=== PATIENT | female | born 1950 | race Caucasian/White ===

== ENCOUNTER 2023-03-04 08:47 | Emergency (ER) | payer BC, MEDICAID ==
[~2023-03-04] VITALS: Ht 152.4 cm; Wt 68.5 kg
[2023-03-04 08:59] VITALS: BP 168/85
--- NOTE | 2023-03-04 09:04 | NUR ---
PT AMBULATED TO ER BED 7
--- NOTE | 2023-03-04 09:35 | NUR ---
Lab at bedside.
--- NOTE | 2023-03-04 09:42 | NUR ---
X-Ray at bedside.
[2023-03-04 09:47] LABS: BASOPHILS % (AUTO) 0.7 % (0.0-2.0); EOSINOPHILS # (AUTO) 0.1 K/uL (0-0.4); EOSINOPHILS % (AUTO) 2.3 % (0.0-4.0); HEMATOCRIT 33.6 % (36-48); HEMOGLOBIN 11.3 g/dL (12.0-16.0); LYMPHOCYTES # (AUTO) 1.3 K/uL (2.5-16.5); LYMPHOCYTES % (AUTO) 22.7 % (20.5-51.1); MEAN CORPUSCULAR HEMOGLOBIN 31 pg (27-31); MEAN CORPUSCULAR HGB CONC 34 g/dL (33-37); MEAN CORPUSCULAR VOLUME 91.3 fL (80-94); MONOCYTES # (AUTO) 0.4 K/uL (0.8-1.0); MONOCYTES % (AUTO) 6.6 % (1.7-9.3); NEUTROPHILS # (AUTO) 3.8 K/uL (1.8-7.7); NEUTROPHILS % (AUTO) 67.7 % (42.2-75.2); PLATELET COUNT (AUTO) 148 K/uL (140-450); RED BLOOD CELL COUNT(AUTO) 3.68 MIL/uL (4.20-5.40); RED CELL DISTRIBUTION WIDTH 14.3 % (11.6-13.7); WHITE BLOOD COUNT (AUTO) 5.7 K/uL (4.8-10.8)
--- NOTE | 2023-03-04 09:52 | NUR ---
Dr. Montgomery evaluating patient at bedside.
[2023-03-04] MEDS ORDERED: ACETAMINOPHEN EXTRA STRENGTH 500 MG TAB PO ONE (09:55)
--- NOTE | 2023-03-04 09:55 | NUR ---
72 y/o female bib self with c/o headache, non-productive cough, sore throat and runny nose x 1 week. Denies taking any medication for symptoms. Patient reports traveling to [place] right before symptoms began. Patient reports family also has similar symptoms. Patient is unsure if she has had a fever. Patient reports headache and back pain. Medical History: HTN, Pre-DM, HLD, Depression NKDA
[2023-03-04 10:11] LABS: ALBUMIN 3.2 g/dL (3.4-5.0); ASPARTATE AMINOTRANSFERASE 25 U/L (15-37); CARBON DIOXIDE 28.6 mmol/L (21-32); CHLORIDE 107 mmol/L (98-107); CREATININE 0.8 mg/dL (0.6-1.3); GLUCOSE 117 mg/dL (74-106); POTASSIUM 3.6 mmol/L (3.5-5.1); SODIUM SERUM 143 mmol/L (136-145); TOTAL BILIRUBIN 0.4 mg/dL (0.0-1.0); UREA NITROGEN, BLOOD 22 mg/dL (7-18)
--- NOTE | 2023-03-04 10:51 | NUR ---
Dr. Montgomery re-evaluating patient at bedside.
[2023-03-04] MEDS ORDERED: ACET-10509 PO (10:53)
[2023-03-04] MEDS ORDERED: BENZ200C4 PO (10:53)
[2023-03-04 11:04] VITALS: BP 153/67
--- NOTE | 2023-03-04 11:04 | NUR ---
Patient discharged with v/s stable. Written and verbal after care instructions given. Patient alert, oriented and verbalized understanding of instructions. Ambulatory with steady gait. All questions addressed prior to discharge. ID band removed. Patient advised to follow up with PMD. Rx of Benzonatate and Tylenol given. Opportunity to ask questions provided and answered.
--- NOTE | 2023-03-04 11:05 | NUR ---
The patient's care was reviewed and supervised by Tami Espinoza RN.
== END 2023-03-04 11:04 | disposition home or self-care (01) ==
LOC: MED 08:47
DX: J06.9 Acute upper respiratory infection, unspecified (principal); Z20.822 Contact with and (suspected) exposure to COVID-19; R07.89 Other chest pain; Z79.899 Other long term (current) drug therapy
CPT/HCPCS: 36415; 71045; 80053; 83880; 84484; 85025; 87426; 87804; 93005; 99285; Q0092

== ENCOUNTER 2023-12-14 08:43 | Emergency (ER) | payer BC, MEDICAID ==
[~2023-12-14] VITALS: Ht 152.4 cm; Wt 68.0 kg
[~2023-12-14 08:43] MED LIST: ACET-10509 PO; BENZ200C4 PO
[2023-12-14 09:06] VITALS: BP 130/99; PULSE 68; RESP 18; TEMP 98; O2SAT 98
[2023-12-14] MEDS ORDERED: AMOX500C25 PO (09:12)
== END 2023-12-14 09:16 | disposition home or self-care (01) ==
LOC: MED 08:43
DX: H66.92 Otitis media, unspecified, left ear (principal); E11.9 Type 2 diabetes mellitus without complications; I10 Essential (primary) hypertension; Z79.899 Other long term (current) drug therapy; Z79.2 Long term (current) use of antibiotics
CPT/HCPCS: 99283